=== PATIENT | female | born 1990 ===

== ENCOUNTER 2021-02-22 11:00 | Outpatient (RCR) | payer OTHER, SELFPAY ==
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
[2021-02-06 14:05] VITALS: BMI 32.3
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
--- NOTE | 2021-02-08 14:53 | PC.NURSE ---
Case opened in tx team
--- NOTE | 2021-02-14 14:14 | HO.PHPPROGNO ---
Subjective Subjective Date of Service: 02/14/21 Reason For Visit: PTSD, Panic DO, Dysthymia Healthcare Proxy: No Guardianship: No Medical Problems Affecting Mental Status: No Interim History: The patient reported that her mood is stable but she recently had more nightmares. We reviewed her list of medications and she agreed to stop Propranolol and start Prazosin at hs for nightmare.s Medication Compliance: Yes Side effects from medications: No Review of Systems Acute medical concerns: No Medical Review of Systems: unchanged Mental Status Exam Mental Status Exam Patient Appearance: Well Grooomed Patient Orientation: Person, Place, Time and Situation Level of Consciousness: Awake and Appropriate Patient Behavior: Appropriate Mood Description: Calm Affect Description: Appropriate and Constricted Patient Cognition Impaired: No Ability to Follow Directions: Good Speech Pattern: Clear Memory Description: Intact Hallucinations: None Delusions: Not Present Thought Process: Goal Oriented Thought Content: positive for Intact Judgement: Fair Diagnostics Vital Signs (24Hr): Body Mass Index 32.3 Assessment & Plan Assessment & Plan (1) Posttraumatic stress disorder: Status: Acute Code(s): F43.10 - Post-traumatic stress disorder, unspecified Assessment and Plan: Adult female with mood disorder, panic disorder and cluster B traits, referred to [facility] for exacerbation of depression. Currenlty her mood is stable with Lamictal but she recently had nightmares. Plan: -D/C Propranolol. Start Prazosin 5 mg po;qhs. (2) Panic disorder: Status: Acute Code(s): F41.0 - Panic disorder [episodic paroxysmal anxiety] (3) Bipolar 2 disorder: Status: Acute Code(s): F31.81 - Bipolar II disorder Certification I certify that partial hospital treatment is medically necessary due to the symptoms and problems resulting from the patient's mental illness and the failure to treat the patient at the partial hospital level of care would likely result in the patient requiring inpatient psychiatric care which could not be prevented at a less intensive level of care. Greater than 50% of the session was spent on counseling and/or coordination of care Discharge Plan Discharge Attending provider: Lukas Sandra Primary Care Provider: Charissa Proctor Medications: New prazosin 5 mg capsule 5 mg PO BEDTIME Qty: 7 RF: 1 Discontinued propranolol 10 mg Tablet 10 mg PO DAILY RF: 0 No Action quetiapine [Seroquel] 25 mg Tablet 25 mg PO BEDTIME PRN (Reason: Anxiety) RF: 0 sertraline [Zoloft] 100 mg Tablet 200 mg PO DAILY RF: 0 omeprazole 20 mg Capsule,Delayed Release(Dr/Ec) 20 mg PO DAILY RF: 0 lamotrigine [Lamictal] 100 mg Tablet 100 mg PO BEDTIME RF: 0 lamotrigine 100 mg Tablet 50 mg PO DAILY RF: 0 Referrals: Charissa Proctor CNP [Primary Care Provider] - 1 Week Telehealth Telehealth Location of provider rendering services: practice address Location of patient: address on file Patient Identification confirmed using: Name, : Yes Telehealth method: video Patient verbally consented to treatment: Yes Patient verbally consented to billing insurance company: Yes Patient informed of any privacy concerns related to visit: No Time spent with patient (mins): 15
--- NOTE | 2021-02-22 10:53 | PC.NURSE ---
Patient is discharging from the program today. Reviewed patient medications with patient. Patient reports taking medications as prescribed. Medication education provided. Patient feeling ready for discharge however feeling some anxiety. Denied SI or thoughts to harm self.
--- NOTE | 2021-02-22 17:03 | P.PNPSP_ITS ---
Subjective Subjective Date of Service: 02/22/21 Reason For Visit: PTSD, Panic DO, Dysthymia Healthcare Proxy: No Guardianship: No Medical Problems Affecting Mental Status: No Interim History: Today is patient's last day in [facility]. She feels that this program has been helpul. Patient reports she decided not to take the prazosin, as she is still , and was concerned. She has also stopped propanolol. She reports that she is feeling fine without either medication, and does not want either at this time. She does continue with lamictal, sertraline, and seroquel. She says that they are working well. She had a recent increase in lamictal, and the increased dose is working well. She will follow-up with her outpatient provider if she feels need to resume the propanolol or an alternative. Medication Compliance: Yes Side effects from medications: No Attending Groups: Yes Review of Systems Review of Systems Yes all other systems are reviewed and are negative Mental Status Exam Mental Status Exam Patient Appearance: Well Grooomed Patient Orientation: Person, Place, Time and Situation Patient Behavior: Appropriate and Cooperative Mood Description: Calm and Appropriate Affect Description: Calm and Appropriate Patient Cognition Impaired: No Ability to Follow Directions: Excellent Speech Pattern: Clear and Appropriate Memory Description: Intact Hallucinations: None Delusions: Not Present Thought Process: Intact and Goal Oriented Thought Content: positive for Intact and positive for Goal Oriented Judgement: Good Judgement and Insight: Judgement and insight grossly intact. Diagnostics Vital Signs (24Hr): Body Mass Index 32.3 Assessment & Plan Patient educated on: diagnosis and medication risk/benefits Certification I certify that partial hospital treatment is medically necessary due to the symptoms and problems resulting from the patient's mental illness and the failure to treat the patient at the partial hospital level of care would likely result in the patient requiring inpatient psychiatric care which could not be prevented at a less intensive level of care. Greater than 50% of the session was spent on counseling and/or coordination of care Discharge Plan Discharge Attending provider: Lukas Sandra Primary Care Provider: Charissa Proctor Medications: New prazosin 5 mg capsule 5 mg PO BEDTIME Qty: 7 RF: 1 Discontinued propranolol 10 mg Tablet 10 mg PO DAILY RF: 0 No Action quetiapine [Seroquel] 25 mg Tablet 25 mg PO BEDTIME PRN (Reason: Anxiety) RF: 0 sertraline [Zoloft] 100 mg Tablet 200 mg PO DAILY RF: 0 omeprazole 20 mg Capsule,Delayed Release(Dr/Ec) 20 mg PO DAILY RF: 0 lamotrigine [Lamictal] 100 mg Tablet 100 mg PO BEDTIME RF: 0 lamotrigine 100 mg Tablet 50 mg PO DAILY RF: 0 Referrals: Charissa Proctor CNP [Primary Care Provider] - 1 Week Stand Alone Forms: Patient Portal Discharge page Telehealth Telehealth Location of provider rendering services: practice address Location of patient: address on file Patient Identification confirmed using: Name, : Yes Telehealth method: video Patient verbally consented to treatment: Yes Patient verbally consented to billing insurance company: Yes Patient informed of any privacy concerns related to visit: Yes Time spent with patient (mins): 20
--- NOTE | 2021-02-23 08:01 | PC.NURSE ---
Spoke with Linda montague BHN re client dc from [facility]
--- NOTE | 2021-02-23 08:29 | PC.NURSE ---
Patient did not start Prazosin, stating she is and wanted to know if she could take the medication as a result. Reviewed with Dr. Sandra, medication discontinued.
== END 2021-02-23 08:16 | disposition home or self-care (01) ==
LOC: HO.PHPA 11:00
PROVIDERS: PCP Nurse Practitioner Family; Visit Provider Psychiatry & Neurology Psychiatry
DX: F31.81 Bipolar II disorder (principal); F43.10 Post-traumatic stress disorder, unspecified; F41.0 Panic disorder [episodic paroxysmal anxiety]; Z79.899 Other long term (current) drug therapy
CPT/HCPCS: 90791; 90853; 99211